=== PATIENT | male | born 1955 | race Caucasian/White ===

== ENCOUNTER → 2017-11-21 | Outpatient (CLI) | payer OTHER ==
--- NOTE | 2017-12-03 23:55 | CON ---
[address] [address] CONSULTATION Name: RONNIE DOS SANTOS Room: [facility]#: [id number] Admission: 11/21/17 Attend Phys: Brijesh Moore MD Discharge: Date of : 53 Report #: [id number] THIS REPORT FOR: //name// CC: Brijesh Giang DATE OF SERVICE: 11/21/2017 [facility] phome: [phone] REFERRING PHYSICIANS: Dr. Diallo from [facility] [place], [place] and Dr. Rose, primary care physician and Dr. Lazar, urologist. PRIMARY SITE AND HISTOPATHOLOGY: The patient has recurrent keloids in the left auricular area, mostly postauricular and then inferior to the left earlobe. HISTORY OF PRESENT ILLNESS: The patient is a 61-year-old gentleman who has had recurrent keloids in the left ear area and he indicated he has had at least 10 resections in that area. He said he had radiation therapy around 2001 at [facility] in [place] after resection and that it recurred regardless of that treatment, so he wanted to check if that will be another option at this point. He had a resection about 6 weeks ago. PAST MEDICAL HISTORY AND PAST SURGICAL HISTORY: Includes hypertension. He also had lithotripsy at [facility]. MEDICATIONS: Atorvastatin, diltiazem, valsartan. FAMILY HISTORY: Sister had ovarian cancer. SOCIAL HISTORY: The patient is retired. He is . He has 2 daughters. Ethanol: he does not drink alcohol containing beverages. Cigarettes: he quit smoking in 2003. He used to smoke for over 20 years. REVIEW OF SYSTEMS: GENERAL: He denied having any fevers or chills. SKIN: He denied having any color changes. LYMPH NODES: He denied having enlarged or painful glands in the neck. ENDOCRINE: The patient denied having any hot or cold intolerance. HEMATOLOGY/IMMUNOLOGY: The patient denied having any anemia or recent bleeding. MUSCULOSKELETAL: The patient denied having any arthritis. HEAD AND NECK: The patient denied having any headaches or migraines. RESPIRATORY: The patient denied having any shortness of breath. CARDIOVASCULAR: The patient denied [place] [address] CONSULTATION Name: RONNIE DOS SANTOS Room: [facility]#: [id number] Admission: 11/21/17 Attend Phys: Brijesh Moore MD Discharge: Date of : 53 Report #: [id number] GASTROINTESTINAL: The patient denied having any nausea or vomiting. NEUROLOGIC: He denied having any focal weakness. PHYSICAL EXAMINATION: VITAL SIGNS: Height is 6 feet, weight 326 pounds, blood pressure 142/84, pulse 86, respirations 20. GENERAL PSYCHIATRIC: He was alert, oriented, in no acute distress. LYMPH NODES: He had no palpable cervical or supraclavicular lymphadenopathy. HEAD, EARS, NOSE AND THROAT: Mouth had no suspicious visible lesions. He had a healing scar inferior to his ear, that measured about 6 cm in length and does not appear to have significant scarring yet. HEART: Regular rate and rhythm without murmur. LUNGS: were clear to auscultation. ABDOMEN: Not tender. Spleen was not palpable. Liver was at the costal margin. EXTREMITIES: Had no clubbing, cyanosis or edema. ASSESSMENT AND PLAN: The patient has had recurrent keloids. He is now 6 weeks out from his resection. So, my suggestion was that he observes this area and if it recurs that then would be a good time to look at possibly radiation right after surgery and that is based on studies such as one by Dr. Adams, it was entitled "electron beam radiation therapy for keloids, retrospective study of 568 cases with 834 lesions" and those were treated by total dose of 18 Gy in 2 fractions, had a relapse rate of about 9.59%. So the risks, benefits and logistics of radiation therapy were discussed with the patient in detail. He lives in the [facility] and the decision was that if a keloid should recur that he would then arrange for possibly another resection and getting radiation therapy closer to [place]. So I gave him a name of one of the radiation oncologists in that area. The patient has no further followup appointments scheduled with me. Thank you very much for this consult. <ELECTRONICALLY SIGNED> By: Brijesh Moore MD 12/03/17 [id number] Moore MD /nt
== END ==
LOC: M.RTH 01:29
DX: L91.0 Hypertrophic scar (principal); I10 Essential (primary) hypertension; Z87.891 Personal history of nicotine dependence